=== PATIENT | female | born 1985 | race Caucasian/White ===

== ENCOUNTER 2016-06-23 16:54 | Emergency (ER) | payer SELFPAY ==
[2016-06-23] MEDS ORDERED: PROMETHAZINE HCL 25 MG TABLET PO ONE (18:28)
[2016-06-23] MEDS ORDERED: DIPHENHYDRAMINE HCL 50 MG CAPSULE PO ONE (18:29)
--- NOTE | 2016-06-23 18:30 | ER Document Report ---
ED Medical Screen (RME) - General Chief Complaint: Headache >24 hrs old Stated Complaint: HEADACHE Notes: 31 yo , , 6 wks gestation. c/o headache and elevated BP. + hx/o migraine. left sided, pulsatile headache. + typical headache for patient. cannot take her Imitrex while . + nausea/vomiting. no relief with tylenol/ fioricet. TRAVEL OUTSIDE OF THE [place] IN LAST 30 DAYS: No - Related Data Allergies/Adverse Reactions: metoclopramide HCl [From Reglan] Allergy (Verified 12/11/13 13:36) Hyperactivity prochlorperazine edisylate [From Compazine] Allergy (Verified 12/11/13 13:36) Hyperactivity prochlorperazine maleate [From Compazine] Allergy (Verified 12/11/13 13:36) Hyperactivity Past Medical History - Social History Chew tobacco use (# tins/day): No Frequency of alcohol use: None Drug Abuse: None - Past Medical History Cardiac Medical History: Reports: Hx Hypertension - With only Pulmonary Medical History: Reports: Hx Asthma Neurological Medical History: Reports: Hx Migraine Psychiatric Medical History: Reports: Hx Depression Past Surgical History: Reports: Hx Section - x1, Hx Tonsillectomy - Immunizations Hx Diphtheria, Pertussis, Tetanus Vaccination: Yes Physical Exam - Vital signs Vitals: Temp Pulse Resp BP Pulse Ox 97.9 F 109 H 16 166/97 H 100 06/23/16 17:50 06/23/16 17:50 06/23/16 17:50 06/23/16 17:50 06/23/16 17:50 Course - Vital Signs Vital signs: Temp Pulse Resp BP Pulse Ox 97.9 F 109 H 16 166/97 H 100 06/23/16 17:50 06/23/16 17:50 06/23/16 17:50 06/23/16 17:50 06/23/16 17:50
[2016-06-23 19:08] LABS: APPEARANCE,URINE CLEAR; BILIRUBIN,URINE NEGATIVE (NEGATIVE); GLUCOSE, URINE NEGATIVE (NEGATIVE); KETONES,URINE NEGATIVE (NEGATIVE); LEUKOCYTE ESTERASE,URINE NEGATIVE (NEGATIVE); NITRITE,URINE NEGATIVE (NEGATIVE); PROTEIN,URINE NEGATIVE (NEGATIVE); URINE SPECIFIC GRAVITY 1.004; UROBILINOGEN,URINE NEGATIVE mg/dL (<2.0)
--- NOTE | 2016-06-23 21:12 | ER Document Report ---
ED Headache - General Mode of Arrival: Ambulatory Information source: Patient TRAVEL OUTSIDE OF THE [place] IN LAST 30 DAYS: No - HPI Patient complains to provider of: Headache Associated symptoms: Other - See above - General Chief Complaint: Headache >24 hrs old Stated Complaint: HEADACHE Notes: Patient is a 31-year-old female, with a past medical history including chronic migraines, who presents to the emergency department complaining of headache onset 3 days ago. Patient reports that [facility]. Patient has been seen at this facility for similar complaints and told to follow-up with her neurologist but has yet to do so. Patient states she is about 6 weeks and that her neurologist refuses to see her when she is . Patient denies abdominal pain, vaginal bleeding, vaginal discharge, and any trauma to her head. PCP: Dr. Nicholas (MYRNA ROMEO) - Related Data Allergies/Adverse Reactions: metoclopramide HCl [From Reglan] Allergy (Verified 12/11/13 13:36) Hyperactivity prochlorperazine edisylate [From Compazine] Allergy (Verified 12/11/13 13:36) Hyperactivity prochlorperazine maleate [From Compazine] Allergy (Verified 12/11/13 13:36) Hyperactivity Past Medical History - General Information source: Patient - Social History Smoking Status: Never Smoker Chew tobacco use (# tins/day): No Frequency of alcohol use: None Drug Abuse: None Family History: Reviewed & Not Pertinent Patient has suicidal ideation: No Patient has homicidal ideation: No - Past Medical History Cardiac Medical History: Reports: Hx Hypertension - With only Pulmonary Medical History: Reports: Hx Asthma Neurological Medical History: Reports: Hx Migraine Psychiatric Medical History: Reports: Hx Depression Past Surgical History: Reports: Hx Section - x1, Hx Tonsillectomy - Immunizations Hx Diphtheria, Pertussis, Tetanus Vaccination: Yes Review of Systems - Review of Systems Constitutional: No symptoms reported EENT: No symptoms reported Cardiovascular: No symptoms reported Respiratory: No symptoms reported Gastrointestinal: denies: Abdominal pain Genitourinary: No symptoms reported Female Genitourinary: denies: Vaginal discharge, Vaginal bleeding Musculoskeletal: No symptoms reported Skin: No symptoms reported Hematologic/Lymphatic: No symptoms reported Neurological/Psychological: See HPI, Headaches -: Yes All other systems reviewed and negative Physical Exam - Vital signs Interpretation: Normal, Other - non-toxic - General General appearance: Appears well, Alert - HEENT Head: Normocephalic, Atraumatic Eyes: Normal Conjunctiva: Normal Extraocular movements intact: Yes Pupils: PERRL Neck: No: Other - nuclear rigidity - Respiratory Respiratory status: No respiratory distress Chest status: Nontender Breath sounds: Normal Chest palpation: Normal - Cardiovascular Rhythm: Regular Heart sounds: Normal auscultation Murmur: No - Abdominal Inspection: Normal Distension: No distension Bowel sounds: Normal Tenderness: Nontender Organomegaly: No organomegaly - Extremities General upper extremity: Normal inspection General lower extremity: Normal inspection - Neurological Neuro grossly intact: Yes Cognition: Normal Orientation: AAOx4 Lutz Coma Scale Eye Opening: Spontaneous Lutz Coma Scale Verbal: Oriented Stephen Coma Scale Motor: Obeys Commands Stephen Coma Scale Total: 15 Speech: Normal Cranial nerves: Normal Cerebellar coordination: Normal Motor strength normal: LUE, RUE, LLE, RLE - Psychological Associated symptoms: Normal affect, Normal mood - Skin Skin Temperature: Warm Skin Moisture: Dry Skin Color: Normal - Vital signs Vitals: Temp Pulse Resp BP Pulse Ox 97.9 F 109 H 16 166/97 H 100 06/23/16 17:50 06/23/16 17:50 06/23/16 17:50 06/23/16 17:50 06/23/16 17:50 (JOSE BEAN) (MYRNA ROMEO) Course - Re-evaluation Re-evalutation: 06/23/16 21:14 I personally performed the services described in the documentation, reviewed and edited the documentation which was dictated to my scribe in my presence, and it accurately records my words and actions. Patient presents emergency, chief complaint of migraine. Said gradual onset 3 days ago not the worse headache of her life history of chronic migraine she seen Dr. Jeffrey nugent for 8 years. She's been seen and evaluated numerous times in the emergency department for migraines. She says the Benadryl and Phenergan that we give her doesn't work and requests Fioricet or Vicodin. She has not follow-up with Dr. Koehler that the spice us recommending that. She says she was sent over for [facility] in [place] today and they pain called us I wanted IV blood pressure medication. We did not receive a phone call from his healthcare. Her blood pressure here is 166/97 she does not have protein in her urine or history of seizures. She is well-appearing nontoxic in no acute acute distress with no neurological deficits on examination. The [facility] saw her ordered Phenergan and Benadryl. Patient states she is allergic to Phenergan. Again urinalysis is negative for protein urea or history of eclampsia preeclampsia. 06/23/16 21:55 06/23/16 22:06 I ordered Benadryl on the patient which she says is not going to work for her. She has a history of chronic pain presentations to the emergency department and is actually received a certified letter from us. I did however time concerned about her blood pressure even though I don't see any protein in urine or seizures were preeclampsia at this point I'm going give her the clinic In 1-2 days for blood pressure management and follow-up with her [employer] physician and her neurologist for management of chronic migraines. (JOSE BEAN) - Vital Signs Vital signs: Temp Pulse Resp BP Pulse Ox 98.3 F 99 18 160/101 H 100 06/23/16 22:02 06/23/16 22:02 06/23/16 22:02 06/23/16 22:02 06/23/16 22:02 (JOSE BEAN) (MYRNA ROMEO) Scribe Documentation - Scribe Written by Easton:: easton Broderick, 06/23/16, [id number] acting as scribe for :: Deejay
[2016-06-23] MEDS ORDERED: DIPHENHYDRAMINE HCL 50 MG/ML VIAL IM ONE (22:01)
[2016-06-23 22:05] VITALS: BP 160/101
[2016-06-23] MEDS ORDERED: ONDANSETRON 4 MG TAB.RAPDIS PO ONE (22:33)
[2016-06-23] MEDS ORDERED: ONDANSETRON 4 MG TAB.RAPDIS ONE (22:35)
== END 2016-06-23 22:39 | disposition home or self-care (01) ==
LOC: ER 16:54
DX: R51 Headache (principal)
CPT/HCPCS: 99284; 96372; 81001; J1200